=== PATIENT | male | born 1980 | race Caucasian/White ===

== ENCOUNTER → 2022-09-27 08:00 | Outpatient (BNVA) | payer OTHER, SELFPAY | PROVIDERS: Family Provider Family Medicine; PCP Nurse Practitioner Family; Visit Provider Nurse Practitioner Family | DX: R03.0 Elevated blood-pressure reading, without diagnosis of hypertension (principal); G47.30 Sleep apnea, unspecified; R06.83 Snoring | CPT/HCPCS: 80053; 80061; 84443; 85025 ==

== ENCOUNTER 2022-10-22 14:00 | Outpatient (CLI) | payer OTHER, SELFPAY | END 2022-10-22 14:01 | disposition home or self-care (01) | LOC: SLEEP 10-24 09:17 | PROVIDERS: Family Provider Family Medicine; PCP Nurse Practitioner Family; Visit Provider Nurse Practitioner Family | DX: G47.30 Sleep apnea, unspecified (principal) | CPT/HCPCS: G0399 ==